=== PATIENT | male | born 1950 | race Asian ===

== ENCOUNTER 2021-07-03 10:39 | Emergency (ER) | payer OTHER ==
[~2021-07-03] VITALS: Ht 154.9 cm; Wt 73.5 kg
[2021-07-03 10:53] VITALS: BP 168/76
--- NOTE | 2021-07-03 11:25 | NUR ---
70 Y/O MALE BIB SELF C/O CAT BITE IN LEFT INDEX FINGER. NOTED SLIGHT BRUISING AND SKIN TEAR. STATED HE WAS BIT BY A BLACK CAT IN [place] AT 0900 TODAY, BLACK CAT WAS PLAYFUL. PT WASHED AREA WITH WATER AND SOAP, DENIES ANY PAIN. LAST TDAP VACCINE 10 YEARS AGO. [facility] PMH: DENIED
[2021-07-03] MEDS ORDERED: AMOXIL/CLAVULANATE 875/125 MG 1 TAB PO ONE (12:15)
--- NOTE | 2021-07-03 12:29 | NUR ---
RAD AT BEDSIDE
--- NOTE | 2021-07-03 12:48 | NUR ---
PT'S INDEX FINGER ON LEFT HAND WAS IRRIGATED WITH NORMAL SALINE AND BETADINE. WOUND WAS THEN WRAPPED WITH NONADHERENT GAUZE AND GAUZE ROLL. PT'S FINGER WAS THEN PLACED IN A FINGER SPLINT. JUDY HILTON NOTIFIED.
[2021-07-03] MEDS ORDERED: AMOX1TAB8 PO (13:24)
[2021-07-03 13:38] VITALS: BP 158/77
== END 2021-07-03 13:38 | disposition home or self-care (01) ==
LOC: MED 10:39
DX: S61.231A Puncture wound without foreign body of left index finger without damage to nail, initial encounter (principal); I10 Essential (primary) hypertension; E11.9 Type 2 diabetes mellitus without complications; Z98.890 Other specified postprocedural states; W55.01XA Bitten by cat, initial encounter; Y93.89 Activity, other specified; Y92.89 Other specified places as the place of occurrence of the external cause; Y99.8 Other external cause status
CPT/HCPCS: 73140; 90471; 90715; 99283